=== PATIENT | male | born 1985 | race Caucasian/White ===

== ENCOUNTER 2021-05-06 17:34 | Emergency (ER) | payer OTHER, BC ==
[2021-05-06] MEDS ORDERED: Lidocaine 1% 10 ML MDV INJECT ONE (18:11)
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
== END 2021-05-06 18:58 | disposition home or self-care (01) ==
LOC: JD.ED 17:34
DX: S01.01XA Laceration without foreign body of scalp, initial encounter (principal); W22.8XXA Striking against or struck by other objects, initial encounter
CPT/HCPCS: 12002; 99282-25